=== PATIENT | female | born 2000 | race Two or more races ===

== ENCOUNTER → 2024-05-19 | Outpatient (CLI) | payer MEDICAID, SELFPAY ==
--- NOTE | 2024-05-19 16:19 | XR_ITS ---
Examination: Knee, left , 3 views Technique: Knee AP, lateral, oblique 3 views Date and time of exam: May 19, 2024 1648 hours INDICATIONS: Left knee pain beginning 2 weeks ago, history foreign anterior cruciate ligament 2016 FINDINGS: Orthopedic hardware consistent with anterior cruciate ligament repair Mild osteopenia. No acute fracture No patellar dislocation IMPRESSION: No acute fracture Mild osteoarthritis patellofemoral joint
== END | disposition home or self-care (01) ==
LOC: CDIM 16:15
PROVIDERS: PCP Nurse Practitioner Family; Referring Provider Nurse Practitioner Family; Visit Provider Nurse Practitioner Family
DX: M17.12 Unilateral primary osteoarthritis, left knee (principal)
CPT/HCPCS: 73562